=== PATIENT | male | born 1975 | race Two or more races ===

== ENCOUNTER 2021-06-16 16:07 | Inpatient (IN) | payer OTHER ==
[~2021-06-16] VITALS: Ht 182.9 cm; Wt 113.4 kg
--- NOTE | 2021-06-16 16:55 | NUR ---
PTE SE RECIBE POR CONSTIPATION DOLOR DE [place] PIERNAS INFLAMADAS Y SERGEY ULCERA EN EL [facility] REFIERE FAMILIAR.
--- NOTE | 2021-06-16 17:22 | NUR ---
PTE ALERTA,ESTABLE Y ORIENTADO.SE EDUCA SOBRE EL TRATAMIENTO QUE RECIBIRA EN EL HOSPITAL Y MICHELLE REFIERE ENTENDER.SE LE AYO MUESTRAS DE [place] Y SE LE ADMINISTRA MEDICAMENTOS LEON ORDEN MEDICA.
--- NOTE | 2021-06-17 | NUR ---
PACIENTE ALERTA Y ORIENTADO EN PERSONA Y LUGAR. ACOMPANADO POR FAMILIAR EN CAMA CON BARANDAS ELEVADAS. IV FLUID PATENTE Y HAZEL DE EDEMA Y ERITEMA. PACIENTE CONSULTADO CON DR. LOPEZ CON DR. JOHN MARQUEZ. SE MANTIENE BAJO OBSERVACION POR CAMBIOS SIGNIFICATIVOS. SE OFRECE CAMBIO DE SABANAS, PACIENTE PRESENTA EVACUACION LIQUIDA COLOR JO. FAMILIAR ASISTE A PACIENTE EN INDY.
--- NOTE | 2021-06-17 08:04 | NUR ---
SE RECIBE PTE DEL TURNO ANTERIOR, ALERTA, UBICADO EN CAMA NIVEL MAS BAJO, WEBER DE IDENTIFICACION Y BARANDAS SUPERIORES ELEVADAS POR PRECAUCION. SE OBSERVA CON FATIGA AL ESFUERZO. PIEL TIBIA AL TACTO, RESECA Y EDEMA BILATERAL EN EXTREMIDADES INFERIORES. IV PATENTE Y HAZEL DE EDEMA O ERITEMA CON 0.9% NSS @120 ML/HR, LEON ORDEN MEDICA. PTE PENDIENRE CONSULTA CON DR JOHN MARQUEZ ( MEDIC[facility] INTER[facility]). PTE AL MOMENTO EN COMPANIA DE FAMILIAR. SE MANTIENE BAJO OBSERVACION.
== END 2021-07-26 09:36 | disposition expired | DRG 329 ==
LOC: ER 16:07 → ICU 06-17 11:28 → MEDI 06-17 11:28 → ICU 07-25 16:21
PROVIDERS: Surgery; ADMIT Internal Medicine; ATTEND Internal Medicine
PROC: 0D9N8ZZ Drainage of Sigmoid Colon, Via Natural or Artificial Opening Endoscopic (ICD-10-PCS; 2021-06-17)
PROC: 4A12X4Z Monitoring of Cardiac Electrical Activity, External Approach (ICD-10-PCS; 2021-06-17)
PROC: 02HV33Z Insertion of Infusion Device into Superior Vena Cava, Percutaneous Approach (ICD-10-PCS; 2021-06-19)
PROC: 0D9K8ZZ Drainage of Ascending Colon, Via Natural or Artificial Opening Endoscopic (ICD-10-PCS; 2021-06-30)
PROC: 0D9L8ZZ Drainage of Transverse Colon, Via Natural or Artificial Opening Endoscopic (ICD-10-PCS; 2021-06-30)
PROC: 0D9N8ZZ Drainage of Sigmoid Colon, Via Natural or Artificial Opening Endoscopic (ICD-10-PCS; 2021-06-30)
PROC: 0D9P8ZZ Drainage of Rectum, Via Natural or Artificial Opening Endoscopic (ICD-10-PCS; 2021-06-30)
PROC: 0D9M8ZZ Drainage of Descending Colon, Via Natural or Artificial Opening Endoscopic (ICD-10-PCS; 2021-06-30)
PROC: 0D9E8ZZ Drainage of Large Intestine, Via Natural or Artificial Opening Endoscopic (ICD-10-PCS; 2021-07-22)
PROC: 0D1B4Z4 Bypass Ileum to Cutaneous, Percutaneous Endoscopic Approach (ICD-10-PCS; principal; 2021-07-22 12:30)
PROC: 0BH17EZ Insertion of Endotracheal Airway into Trachea, Via Natural or Artificial Opening (ICD-10-PCS; 2021-07-25)
PROC: 5A1935Z Respiratory Ventilation, Less than 24 Consecutive Hours (ICD-10-PCS; 2021-07-25)
DX: K59.81 Ogilvie syndrome (principal); J96.00 Acute respiratory failure, unspecified whether with hypoxia or hypercapnia; R65.21 Severe sepsis with septic shock; J69.8 Pneumonitis due to inhalation of other solids and liquids; J95.89 Other postprocedural complications and disorders of respiratory system, not elsewhere classified; J91.8 Pleural effusion in other conditions classified elsewhere; R18.8 Other ascites; R53.81 Other malaise; K59.09 Other constipation; D69.6 Thrombocytopenia, unspecified; F79 Unspecified intellectual disabilities; I10 Essential (primary) hypertension; I73.9 Peripheral vascular disease, unspecified; E66.9 Obesity, unspecified